=== PATIENT | male | born 1960 | race Caucasian/White ===

== ENCOUNTER 2016-09-27 07:53 | Day surgery (SDC) | payer MEDICARE, OTHER ==
[2016-09-14 09:57] VITALS: BMI 32.2
[2016-09-27] MEDS ORDERED: Phenylephrine 10 mg/ml Inj ONE (08:11)
[2016-09-27] MEDS ORDERED: Propofol 10 mg/ml Inj (20 ML) ONE (08:38)
[2016-09-27] MEDS ORDERED: Midazolam 2 MG/2 ML VIAL ONE (08:38)
[2016-09-27] MEDS ORDERED: Lidocaine Hydrochloride 5 ML INJ ONE (08:38)
[2016-09-27] MEDS: Ciprofloxacin 400mg/200ml D5W 400 MG/200 ML BAG IVPB ONE ×2 (08:49→09:20)
[2016-09-27] MEDS: Gentamicin 160 MG in Sodium Chloride 0.9% 100 ML IVPB ONE ×3 (08:50→09:45)
[2016-09-27] MEDS ORDERED: HYDROmorphone 0.5 mg/0.5 ml ISec IVP PRN (10:03)
--- NOTE | 2016-09-27 10:09 | PCM.SURG1 ---
Surgeon's Initial Post Op Note - Surgeon's Notes Surgeon: jocelyn Terra Cotta Roofer Helper: deana Type of Anesthesia: General LMA Anesthesia Administered By: staff Pre-Operative Diagnosis: BPH/ROBLERO Operative Findings: BPH/ROBLERO Post-Operative Diagnosis: BPH/ROBLERO Operation Performed: TULAP Specimen/Specimens Removed: NA Estimated Blood Loss: EBL {In ML}: 0 Blood Products Given: N/A Drains Used: No Drains Post-Op Condition: Good Date of Surgery/Procedure: 09/27/16 Time of Surgery/Procedure: 10:09
[2016-09-27] MEDS ORDERED: Lactated Ringer's 1,000 ML IV ONE (10:12)
[2016-09-27] MEDS ORDERED: HYDROmorphone 0.5 mg/0.5 ml ISec IVP ONE ×4 (10:53→11:57)
--- NOTE | 2016-09-27 11:47 | OP ---
PROCEDURE DATE: 09/27/2016 PREOPERATIVE DIAGNOSES: Benign prostatic hypertrophy with bladder outlet obstruction, and compensato ry trabeculation of bladder. POSTOPERATIVE DIAGNOSES: Benign prostatic hypertrophy with bladder outlet obstruction, and compensat ory trabeculation of bladder. FINDINGS: Trilobar hypertrophy of the prostate with compensatory hypertrophy of the bladder indicati ve of bladder outlet obstruction. PROCEDURE: The patient was asked to sign a detailed informed consent after full explanation of all t he risks and complications of his procedure in the presence of his family who acted as a project construction assistant manager. He indicated he understood the risks and alternate methods of treatment, elected to accept these ris ks and proceed with surgery. He was brought into the room, draped and prepped in the usual manner. A timeout was taken according to the rules and regulations of [facility]. The patient was then cystoscoped with #21 laser cys toscope. The scope was passed into the bladder. and the previous cystoscopic findings were confirmed . The laser resectoscope sheath was then inserted after removing the cystoscope bridge, and the lase r fiber was inserted. Ablation of the prostate began at 11 o'clock and carried down to 6 o'clock, ab lating all obstructing prostatic tissue down to the prostatic capsule. The left lateral lobe, the ba se tissue, and the roof tissue were vaporized in a similar fashion. The verumontanum, external sphin cter, and ureteral orifices were not injured. Once meticulous hemostasis was achieved, and there was no active bleeding, the bladder was filled, an d the scope was removed. #20 two-way 5 mL catheter was inserted and inflated with normal saline, an d clear irrigant fluid drained. The patient tolerated the procedure well. He will be given detailed postoperative instructions, a prescription for Percocet and Cipro, and followup appointment in our o ffice tomorrow at 3:00 p.m. for catheter removal. Dami Swanson MD cc: [id number] TT: 09/27/2016 11:47:31 josé
[2016-09-27 12:53] VITALS: O2SAT 98
[2016-09-27 15:39] VITALS: BP 120/78; PULSE 68; RESP 20; TEMP 98.2
== END 2016-09-27 14:00 | disposition home or self-care (01) ==
LOC: C.SDS 07:53
PROVIDERS: ATTEND Urology
DX: N40.1 Benign prostatic hyperplasia with lower urinary tract symptoms (principal); N13.8 Other obstructive and reflux uropathy; N32.89 Other specified disorders of bladder
CPT/HCPCS: 52648; A4358; J0744; J1170; J1580; J7120